=== PATIENT | male | born 1990 | race Caucasian/White ===

== ENCOUNTER 2016-11-29 21:38 | Emergency (ER) | payer SELFPAY ==
[~2016-11-29 21:38] MED LIST: ADVIL200 M2; ALBUTEROL17 GM INH; AMOXICILLIN PO; AUGMENTIN875 MG PO; BACTRIM DS TABL1 TA1 PO; BACTRIM DS TABL1 TA2 PO; CIPRO XR 500 M500 MG PO; DOXYCYCLINE HY100 M1; DOXYCYCLINE HY100 M1 PO; DOXYCYCLINE HY100 M3 PO; FLEXERIL10 M1 PO; FLEXERIL10 MG PO; IBUPROFEN600 MG PO; IBUPROFEN800 MG PO; LORTAB 5-325 M1 EACH PO; LORTAB 5/500 TA1 TA2 PO; MOTRIN600 M1 PO; NAPROSYN500 MG PO; NO MEDICATIONS; PHENERGAN25 M1 PO; ROBAXIN 750750 M1 PO; ROBAXIN500 MG PO; ULTRAM PO; VICODIN PO; VOLTAREN50 MG PO; VOLTAREN75 MG PO
== END 2016-11-29 21:42 | disposition home or self-care (01) ==
LOC: SED 21:38
DX: A54.01 Gonococcal cystitis and urethritis, unspecified (principal); F17.200 Nicotine dependence, unspecified, uncomplicated
CPT/HCPCS: 96372; 99283; J0696